=== PATIENT | female | born 1930 | race Caucasian/White ===

== ENCOUNTER → 2016-04-29 | Day surgery (SDC) | payer MEDICARE ==
[~2016-04-29] MED LIST: ALPR0.25 PO; APIX5TAB PO; BENA25TA3 PO; BUPIVACAINE HCL PF 0.5% 30 ML VIAL ONE; CELE20TA PO; CHOL1TAB31 PO; DIPH25CA PO; DYAZ37.5 PO; FAMO1TAB73 PO; FAMO40TA PO; METO25TA3 PO; MIRA3350 PO; MIRA33504 PO; MULT-182 PO; MULT1TAB84 PO; OXYC-395 PO; OYST250T4 PO; POTA10CA PO; PROPOFOL 200 MG/20 ML AMP IV ONE; SYNT88TA PO; TRIAMCINOLONE ACETONIDE 40 MG/ML VIAL I-ARTICULR ONE; [UNRECOGNIZED DRUG - CODE] PO; methylPREDNISolone ACETATE 40 MG/ML VIAL I-ARTICULR ONE
--- NOTE | 2016-05-07 12:50 | M6 ---
cc: JJ SANTIAGO M.D. DATE: 04/29/2016 DATE OF : 1930 PROCEDURE Fluoroscopically guided injection bilateral sacroiliac joints. History and physical was completed and signed. Consent was signed. Procedure site was marked. Medications were listed and reconciled. Pain score was recorded. Allergies were noted. Time out was taken. Fluoroscopy time was recorded where applicable. Sedation was administered or directed by Dr. Santiago. The patient was given oxygen. The patient was monitored by a registered nurse. Total procedure time was greater than 15 minutes. IV was started, blood pressure cuff, pulse oximeter and EKG were applied. The patient was placed in the prone position on a Vincenzo table sedated with small amounts of propofol titrated to effect. Vital signs were monitored and remained stable throughout procedure. Sacral area was prepped with alcohol and 10% Betadine solution and draped with sterile drapes. Fluoroscopy was used shooting from medial to lateral to clearly visualize the posterior joint line of the bilateral sacroiliac joints. Separate sterile 5-inch 22-gauge spinal needles were advanced into these joints under fluoroscopic guidance. There was negative aspiration for blood or any other type of fluid and at each location the patient was given was given 2 mL of 0.5% Marcaine 20 mg of Depo-Medrol and 20 mg of Kenalog. Following the procedure the patient was taken to the recovery room with stable vital signs, neurologically intact. She will be evaluated immediately and with followup to determine if she has a subjective decrease in her usual pain and a corresponding objective increase her functional capabilities. WMD THOMAS Pablo/harshil /10:04 AM /12:47 PM
== END | disposition home or self-care (01) ==
LOC: PHSDC 08:22
PROVIDERS: ATTEND Pain Medicine Interventional Pain Medicine
DX: M54.5 Low back pain (principal)
CPT/HCPCS: 99152; G0260; J1030; J3301; 27096

== ENCOUNTER → 2016-09-25 | Day surgery (SDC) | payer MEDICARE ==
[~2016-09-25] MED LIST changes: -BENA25TA3 PO; -FAMO1TAB73 PO; -MIRA33504 PO; -MULT1TAB84 PO; -[UNRECOGNIZED DRUG - CODE] PO
--- NOTE | 2016-09-27 17:14 | M6 ---
cc: JJ SANTIAGO M.D. DATE: 09/25/2016. DATE OF : 1930 PROCEDURE PERFORMED: Fluoroscopically guided injection bilateral sacroiliac joints. DESCRIPTION OF THE PROCEDURE IN DETAIL: History and physical was completed and signed. Consent was signed. Procedure site was marked. Medications were listed and reconciled. Pain score was recorded. Allergies were noted. Time out was taken. Fluoroscopy time was recorded where applicable. Sedation was administered or directed by Dr. Santiago. The patient was given oxygen. The patient was monitored by a registered nurse. Total procedure time was greater than 15 minutes. IV was started, blood pressure cuff, pulse oximeter and EKG were applied. The patient was placed in the prone position on a Vincenzo table and sedated with small amounts of propofol titrated to effect. Vital signs were monitored and remained stable throughout the procedure. The sacral area was prepped with alcohol and 10% Betadine solution and draped with sterile drapes. Fluoroscopy was used shooting from medial to lateral to clearly visualize the posterior joint line of the bilateral sacroiliac joints. Separate sterile 5-inch 22-gauge spinal needles were advanced into these joints under fluoroscopic guidance. There was negative aspiration for blood or any other type of fluid and the patient was given 2 mL of 0.5% Marcaine, 20 mg of Depo-Medrol and 20 mg of Kenalog at each location. Following this, the patient was taken to the recovery room with stable vital signs neurologically intact. WMD THOMAS Pablo/MARCELINO /10:45 AM /5:11 PM
== END | disposition home or self-care (01) ==
LOC: PHSDC 08:57
PROVIDERS: ATTEND Pain Medicine Interventional Pain Medicine
DX: M54.5 Low back pain (principal)
CPT/HCPCS: 99152; G0260; J1030; J3301; 27096